=== PATIENT | male | born 1985 | race Caucasian/White ===

== ENCOUNTER 2022-07-26 09:17 | Emergency (ER) | payer OTHER ==
[2022-07-26 09:27] VITALS: BP 109/74; PULSE 83; RESP 20; TEMP 98.2
--- NOTE | 2022-07-26 10:31 | ED ---
URI HPI - General Chief Complaint: Upper Respiratory Infection Stated Complaint: COVID test Time Seen by Provider: 07/26/22 09:28 Source: patient, RN notes reviewed Mode of arrival: ambulatory Limitations: no limitations - Related Data Previous Rx's Medication Instructions Recorded Nirmatrelvir/Ritonavir [Paxlovid See Rx Instructions .ROUTE 07/26/22 2X150 mg-100 mg (Eua)] .COMPLEX #30 tab Allergies Allergy/AdvReac Type Severity Reaction Status Date / Time No Known Allergies Allergy Verified 07/26/22 09:27 Review of Systems ROS Statement: Those systems with pertinent positive or pertinent negative responses have been documented in the HPI. ROS Other: All systems not noted in ROS Statement are negative. Past Medical History Past Medical History: No Reported History History of Any Multi-Drug Resistant Organisms: None Reported Past Surgical History: No Surgical Hx Reported Past Psychological History: No Psychological Hx Reported Smoking Status: Current every day smoker Past Alcohol Use History: None Reported Past Drug Use History: None Reported General Exam Limitations: no limitations Course Vital Signs 07/26/22 09:24 Temperature 98.2 F Pulse Rate 83 Respiratory 20 Rate Blood Pressure 109/74 O2 Sat by Pulse 99 Oximetry Medical Decision Making - Lab Data Lab Results 07/26/22 Range/Units 09:29 Coronavirus (PCR) Detected A (Not Detectd) Disposition Clinical Impression: COVID-19 Disposition: HOME SELF-CARE Condition: Stable Instructions (If sedation given, give patient instructions): COVID-19 (Cor onavirus Disease 2019) (ED) Additional Instructions: Please return to the Emergency Department if symptoms worsen or any other concerns. Prescriptions: Nirmatrelvir/Ritonavir [Paxlovid 2X150 mg-100 mg (Eua)] See Rx Instructions .ROUTE .COMPLEX #30 tab Is patient prescribed a controlled substance at d/c from ED?: No Referrals: None,Stated [Primary Care Provider] - 1-2 days Time of Disposition: 10:30
== END 2022-07-26 10:40 | disposition home or self-care (01) ==
LOC: EC 09:17
DX: U07.1 COVID-19 (principal); F17.200 Nicotine dependence, unspecified, uncomplicated
CPT/HCPCS: 87635; 99283